=== PATIENT | male | born 1980 | race Caucasian/White ===

== ENCOUNTER 2019-08-22 12:11 | Emergency (ER) | payer MEDICAID ==
[2019-08-22] MEDS ORDERED: TORAdol 30 mg Injection IM ONE (12:49)
[2019-08-22] MEDS ORDERED: TORAdol 30 mg Injection ONE (13:02)
[2019-08-22 13:11] VITALS: O2SAT 98
--- NOTE | 2019-08-22 13:32 | XRAY ---
Indication: Pain following injury. Comparison: None 3 view lumbar spine demonstrates 4 lumbar segments in normal alignment with L4-S1 disc space narrowing, left pelvis phlebolith, and mild scattered colonic fecal debris. No other bony, articular, or soft tissue abnormalities.
[2019-08-22 13:54] LABS: Appearance CLEAR (CLEAR); Bacteria RARE /HPF (NEGATIVE); Bilirubin NEGATIVE (NEGATIVE); Blood NEGATIVE Ery/ul (0-5); Glucose NEGATIVE (NEGATIVE); Ketones NEGATIVE (NEGATIVE); Leukocyte Esterase NEGATIVE (NEGATIVE); Mucus SLIGHT /HPF (NEGATIVE); Nitrite NEGATIVE (NEGATIVE); Protein,Urine Dip NEGATIVE (Negative); Specific Gravity 1.024 (1.005-1.025); Urobilinogen 4 mg/dL (0-1)
--- NOTE | 2019-08-22 13:54 | ERPHSYRPT ---
- History of Present Illness Time Seen by Provider: 08/22/19 12:30 Source: patient Exam Limitations: no limitations Patient Subjective Stated Complaint: back pain Triage Nursing Assessment: pt to ED c/o back pain R sided onset x 3-4 days while working, possibly changing a tire. denies hearing pop. rates 8/10 non radiating that worsens with position change. ambulatory without assistance. no bowel or urinary issues reported. Physician History: Patient is a 38-year-old male presents to our ED with complaints of right-sided back pain. Pain has been ongoing for approximately 2 to 3 days. Patient job is primarily labor. Patient works on [employer] and thinks he may have injured his back lifting a tire. Patient is unsure. Otherwise no trauma. No fevers. No nausea or vomiting. No diarrhea. No chest pain or shortness of breath. Symptoms are constant. Symptoms are mild to moderate in intensity. Patient states movement and palpation to his right back reproduce symptoms. Patient is otherwise healthy. He voices no other complaints at this time. Timing/Duration: day(s) (2-3 days) Method of Injury: lifting Quality: aching Back Pain Location: lumbar spine (Right thoracolumbar spine area. At the level of the CVA. Overlying soft tissue intact.) Severity of Pain-Max: severe Severity of Pain-Current: moderate Associated Symptoms: denies symptoms, No fever, No chills, No nausea, No vomiting, No weakness Previous symptoms: no prior history Allergies/Adverse Reactions: No Known Drug Allergies Allergy (Verified 08/22/19 12:31) Home Medications: No Home Meds [No Home Meds] 1 [facility] 10/01/15 [History] Hx Tetanus, Diphtheria Vaccination/Date Given: No Hx Influenza Vaccination/Date Given: No Hx Pneumococcal Vaccination/Date Given: No Immunizations Up to Date: No Travel Risk - International Travel Have you traveled outside of the country in past 3 weeks: No - Coronavirus Screening Are you exhibiting any of the following symptoms?: No Close contact with a COVID-19 positive Pt in past 14-21 Days: No - Review of Systems Constitutional: No Symptoms, No Fever, No Chills Eyes: No Symptoms Ears, Nose, & Throat: No Symptoms Respiratory: No Symptoms, No Cough, No Dyspnea Cardiac: No Symptoms, No Chest Pain, No Edema, No Syncope Abdominal/Gastrointestinal: No Symptoms, No Abdominal Pain, No Nausea, No Vomiting, No Diarrhea Genitourinary Symptoms: No Symptoms, No Dysuria Musculoskeletal: No Symptoms, No Back Pain, No Neck Pain Skin: No Symptoms, No Rash Neurological: No Symptoms, No Dizziness, No Focal Weakness, No Sensory Changes Psychological: No Symptoms Endocrine: No Symptoms, Excessive Sweating Hematologic/Lymphatic: No Symptoms Immunological/Allergic: No Symptoms All Other Systems: Reviewed and Negative - Past Medical History Pertinent Past Medical History: Yes GI Medical History: Hepatitis Other Medical History: Hep B - Past Surgical History Past Surgical History: Yes Gastrointestinal: Hernia Repair - Social History Smoking Status: Current every day smoker How long have you smoked: years Exposure to second hand smoke: Yes Drug Use: none Patient Lives Alone: No - Nursing Vital Signs Nursing Vital Signs: Initial Vital Signs Temperature 97.9 F 08/22/19 12:21 Pulse Rate 91 H 08/22/19 12:21 Respiratory Rate 18 08/22/19 12:21 Blood Pressure 141/70 08/22/19 12:21 O2 Sat by Pulse Oximetry 99 08/22/19 12:21 Pain Scale Pain Intensity [] 8 Pain Intensity 2 - Physical Exam General Appearance: no apparent distress, alert Eye Exam: PERRL/EOMI, eyes nml inspection Ears, Nose, Throat Exam: normal ENT inspection Neck Exam: normal inspection, non-tender, supple, full range of motion, No meningismus, No midline tenderness Respiratory Exam: normal breath sounds, lungs clear, No respiratory distress Cardiovascular Exam: regular rate/rhythm, normal heart sounds Gastrointestinal Exam: soft, No tenderness, No mass Back Exam: normal inspection, normal range of motion, CVA tenderness, other (Tenderness to palpation at right CVA paraspinal musculature. This created suspicion for possible flank pain/nephrolithiasis.) Extremity Exam: normal inspection, normal range of motion, No calf tenderness, No pedal edema Peripheral Pulses: dorsalis-pedis (R): 2+, dorsalis-pedis (L): 2+ Neurologic Exam: alert, oriented x 3, cooperative, kettle worker II-XII nml as tested, normal mood/affect, nml station & gait, sensation nml, No motor deficits Skin Exam: normal color, warm, dry, No rash Lymphatic Exam: No adenopathy SpO2 Interpretation: normal SpO2: 98 O2 Delivery: Room Air - Course Nursing assessment & vital signs reviewed: Yes - Radiology Exams L-Spine X-ray Interpretation: Teleradiologist Report (Normal alignment with L4-S1 disc space narrowing. Left pelvis phleboliths and mild scattered colonic fecal debris. No other bony articular or soft tissue abnormalities.) Ordered Tests: Active Orders 24 hr Category Date Time Status LUMBAR LIMITED (2 OR 3 VIEWS) Stat Exams 08/22/19 12:48 Completed UA W/RFX UR CULTURE Stat Lab 08/22/19 13:57 Completed Medication Summary Discontinued Medications Generic Name Dose Route Start Last Admin Trade Name Freq PRN Reason Stop Dose Admin Ketorolac Tromethamine 30 mg 08/22/19 12:49 08/22/19 13:03 Toradol 30 Mg Injection IM 08/22/19 12:50 30 mg STAT ONE Administration Ketorolac Tromethamine Confirm 08/22/19 13:02 Toradol 30 Mg Injection Administered 08/22/19 13:03 Dose 30 mg .ROUTE .Anturis-LocAsian ONE Lab/Rad Data: Laboratory Results 08/22/19 Range/Units 13:57 Urine Color YELLOW (YELLOW) Urine Appearance CLEAR (CLEAR) Urine pH 5.0 (5-6) Ur Specific Donna 1.024 (1.005-1.025) Urine Protein NEGATIVE (Negative) Urine Ketones NEGATIVE (NEGATIVE) Urine Blood NEGATIVE (0-5) Peyman/ul Urine Nitrite NEGATIVE (NEGATIVE) Urine Bilirubin NEGATIVE (NEGATIVE) Urine Urobilinogen 4 (0-1) mg/dL Ur Leukocyte Esterase NEGATIVE (NEGATIVE) Urine WBC (Auto) 3-5 (0-5) /HPF Urine RBC (Auto) 3-5 (0-2) /HPF U Epithel Cells (Auto) NONE (FEW) /HPF Urine Bacteria (Auto) RARE (NEGATIVE) /HPF Urine Mucus (Auto) SLIGHT (NEGATIVE) /HPF Urine Culture Reflexed NO (NO) Urine Glucose NEGATIVE (NEGATIVE) mg/dL - Progress Progress: improved Progress Note: 08/22/19 14:26 Patient reassessed. Pain significantly improved. UA presents with microhematuria. In light of his unilateral right-sided posterior flank pain near the CVA and the hematuria Dr. Singleton advised CT abdomen pelvis to rule out ureterolithiasis. Patient stated he felt well and did not think it was necess keven. Patient declined CAT scan of the abdomen and pelvis to rule out ureterolithiasis. Patient advised that if he reconsiders or if pain continues he should return to our ED or follow-up with his primary care doctor to obtain a CT abdomen pelvis. He understand the possibility of a obstructive kidney stone exist. Plan of care discussed with patient. Patient agrees. Patient agrees to follow-up with his primary care doctor within 48 hours for reevaluation. Patient voiced no other complaints or concerns at this time. A prescription for Toradol was forwarded to patient's pharmacy. 08/22/19 14:28 Counseled pt/family regarding: lab results, diagnosis, need for follow-up, rad results - Departure Departure Disposition: Home Clinical Impression: Back pain, Hematuria Condition: Stable Critical Care Time: No Referrals: DOCTOR,NO FAMILY [Primary Care Provider] - Instructions: Low Back Pain (DC) Additional Instructions: Discharge/Care Plan THAISVALENTINA MONIQUE was seen on 08/22/19 in the Emergency Room. The patient was counseled regarding Diagnosis,Lab results, Imaging studies, need for follow up and when to return to the Emergency Room. Prescriptions given: Discharge Note I have spoken with the patient and/or caregivers. I have explained the patient's condition, diagnosis and treatment plan based on the information available to me at this time. I have answered the patient's and/or caregiver's questions and addressed any concerns. The patient and/or caregivers have as good understanding of the patient's diagnosis, condition and treatment plan as can be expected at this point. The vital signs have been stable. The patient's condition is stable and appropriate for discharge from the emergency department. The patient will pursue further outpatient evaluation with the primary care physician or other designated or consulting physician as outlined in the discharge instructions. The patient and/or caregivers are agreeable to this plan of care and follow-up instructions have been explained in detail. The patient and/or caregivers have received these instruction. The patient/and or caregivers are aware that any significant change in condition or worsening of symptoms should prompt an immediate return to this or the closest emergency department or call 911. Prescriptions: Ketorolac Tromethamine [Toradol] 10 mg PO TID 5 Days #15 tablet
[2019-08-22 14:09] VITALS: BP 113/69; PULSE 72
== END 2019-08-22 14:24 | disposition home or self-care (01) ==
LOC: ED 12:11
DX: M54.9 Dorsalgia, unspecified (principal); R31.9 Hematuria, unspecified; X50.0XXA Overexertion from strenuous movement or load, initial encounter; X50.9XXA Other and unspecified overexertion or strenuous movements or postures, initial encounter; Y99.8 Other external cause status
CPT/HCPCS: 72100; 81001; 96372; 99284; J1885

== ENCOUNTER 2021-04-13 06:01 | Day surgery (SDC) | payer OTHER ==
[2021-04-13] MEDS ORDERED: Lactated Ringers 1,000 ML IV SCH (06:30)
[2021-04-13] MEDS ORDERED: DIPRIVAN 200 MG/20 ML IV ONE ×2 (07:28→08:10)
[2021-04-13] MEDS ORDERED: Xylocaine-Mpf 2% 5 Ml Vial ONE (07:28)
[2021-04-13] MEDS ORDERED: Versed 2 MG/2 ML Injection ONE (07:29)
[2021-04-13] MEDS ORDERED: PHENYLEPHRINE HCL ONE (08:12)
[2021-04-13] MEDS ORDERED: Lactated Ringers 1,000 ML IV ONE (08:14)
[2021-04-13 09:56] VITALS: BP 137/87; PULSE 66; O2SAT 98
--- NOTE | 2021-04-13 11:15 | OP ---
SURGERY DATE/TIME: 04/13/2021 0732 PREOPERATIVE DIAGNOSES: 1) Reflux. 2) Gastroesophageal reflux disease. 3) Aspiration. 4) Rectal bleeding POSTOPERATIVE DIAGNOSES: 1) Reflux esophagitis. 2) Internal hemorrhoids otherwise normal colon. PROCEDURES: 1) Esophagogastroduodenoscopy. 2) Colonoscopy. SURGEON: Dr. Adams. ANESTHESIA: Medications were given by the anesthesia department. HISTORY: The patient is a 40 year old white male patient who has been noticing rectal bleeding, blood mixed in with the stool. He also reports he has been having a lot of trouble with reflux and waking up aspirating. The patient was placed on some Reglan initially and felt the need to have endoscopic evaluation of EGD and colonoscopy. The patient was appraised of the risks of the procedure including the risk of perforation, phlebitis, untoward reaction to medication, bleeding and missed lesions. The patient verbalized her understanding and desired to have the procedure performed. DESCRIPTION OF PROCEDURE: The patient was given the medications by the anesthesia department. He had continuous pulse oximetry, ECG monitoring and intermittent blood pressure monitoring and tidal CO2 monitoring during the examination. He was placed in the left lateral decubitus position. A bite block was placed. Flexible Olympus gastroscope was used to intubate the oropharynx. There appeared to be some swelling in the hypopharynx area. The esophagus was intubated and there appeared to a lot of fluid refluxing up here but we suctioned this and went through. There appeared to be at least a mild to moderate reflux esophagitis. No evidence of Ramirez's is noted. The stomach was entered. The stomach insufflated with air. The scope is passed along the greater curvature of the stomach to the antrum. The pylorus encountered and intubated. The duodenum inspected and found to be normal. The scope is withdrawn towards the stomach. A retroflex view was obtained and showed no evidence of hiatal hernia. No other mucosal lesions being encountered, the scope was removed from the patient. Next, a digital rectal examination was performed and revealed external hemorrhoids, no active bleeding and normal prostate. The flexible Olympus pediatric colonoscope was used to intubate the rectum. A view of the colon was developed sequentially to the cecum. A short, little distance into the terminal ileum was obtained with no evidence of colitis noted and upon insertion and withdrawal, including a retroflex view in the rectum. The scope was removed from the patient who tolerated the procedure well and was sent back to OP recovery in good condition. The prep was noted to be fair to good.
== END 2021-04-13 09:45 | disposition home or self-care (01) ==
LOC: SDC 06:01
PROVIDERS: ATTEND Family Medicine
DX: K21.00 Gastro-esophageal reflux disease with esophagitis, without bleeding (principal); K64.8 Other hemorrhoids; K21.9 Gastro-esophageal reflux disease without esophagitis; K62.5 Hemorrhage of anus and rectum; R29.2 Abnormal reflex
CPT/HCPCS: J2250; J2370; J2704